=== PATIENT | female | born 1945 | race Caucasian/White ===

== ENCOUNTER → 2018-03-12 | Outpatient (CLI) | payer MEDICARE, OTHER ==
[~2018-03-12] MED LIST: Aspir 8181 MG PO; Glucose4 GM PO; INSULANPEN SC; Indapamide2.5 MG; Iron Supplemen325 MG PO; LOSA25 PO; METF500 PO; Multiple Vitam1 EAC1 PO; TRAZ50 PO; VENL75ER PO
== END | disposition home or self-care (01) ==
LOC: LAB SHORT 10:13 → PLD 10:13
DX: D48.5 Neoplasm of uncertain behavior of skin (principal)
CPT/HCPCS: 88305

== ENCOUNTER → 2018-12-13 | Outpatient (CLI) | payer MEDICARE, OTHER ==
[2018-12-15 14:31] LABS: Campylobacter Sp Not Detected (NOT DETECT); Cryptosporidium Not Detected (NOT DETECT); E. Coli O157 Not Detected (NOT DETECT); Enteroaggregative E. coli-EAEC Not Detected (NOT DETECT); Enteropathogenic E. coli-EPEC Not Detected (NOT DETECT); Enterotoxigenic E. coli-ETEC Not Detected (NOT DETECT); Plesiomonas Shigelloides Not Detected (NOT DETECT); Salmonella Sp Not Detected (NOT DETECT); Shiga Toxin-prod E. coli-STEC Not Detected (NOT DETECT); Shigella/Enteroin E. coli-EIEC Not Detected (NOT DETECT); Vibrio Cholerae Not Detected (NOT DETECT); Vibrio Sp Not Detected (NOT DETECT); Yersinia Enterocolitica Not Detected (NOT DETECT)
[2018-12-15 14:32] LABS: Adenovirus F 40/41 Not Detected (NOT DETECT); Astrovirus Not Detected (NOT DETECT); Cyclospora Cayetanensis Not Detected (NOT DETECT); Entamoeba Histolytica Not Detected (NOT DETECT); Giardia Lamblia Not Detected (NOT DETECT); Norovirus GI/GII Not Detected (NOT DETECT); Rotavirus A Not Detected (NOT DETECT); Sapovirus Not Detected (NOT DETECT)
== END | disposition home or self-care (01) ==
LOC: LAB SHORT 11:42 → LAB 11:42 → LAB FUT 12-11 08:50
PROVIDERS: Internal Medicine
DX: R19.7 Diarrhea, unspecified (principal)
CPT/HCPCS: 87507

== ENCOUNTER 2019-03-05 16:28 | Inpatient (IN) | payer MEDICARE, OTHER ==
[~2019-03-05] VITALS: Ht 162.6 cm; Wt 77.6 kg
[~2019-03-05 16:28] MED LIST changes: +Ferrous Sulfat325 MG PO; -Iron Supplemen325 MG PO; -TRAZ50 PO; -VENL75ER PO
[2019-03-05 17:03] LABS: BASOPHILS ABSOLUTE AUTO 0.05 K/mm3 (0.00-0.23); BASOPHILS PERCENT AUTO 0 % (0-2); EOSINOPHILS ABSOLUTE AUTO 0.03 K/mm3 (0.00-0.68); EOSINOPHILS PERCENT AUTO 0 % (0-6); Hematocrit 38.2 % (33.0-51.0); Hemoglobin 12.4 g/dL (11.5-16.0); IMMATURE GRAN PERCENT AUTO 1 % (0-1); LYMPHOCYTES ABSOLUTE AUTO 1.42 K/mm3 (0.84-5.20); LYMPHOCYTES PERCENT AUTO 7 % (21-46); MONOCYTES ABSOLUTE AUTO 1.36 K/mm3 (0.16-1.47); MONOCYTES PERCENT AUTO 6 % (4-13); Mean Corpuscular HGB 28.3 pg (26.0-34.0); Mean Corpuscular HGB Conc 32.5 g/dL (31.5-36.5); Mean Corpuscular Volume 87 fL (80-100); Mean Platelet Volume 9.7 fL (9.1-12.4); NEUTROPHILS ABSOLUTE AUTO 18.88 K/mm3 (1.96-9.15); NEUTROPHILS PERCENT AUTO 86 % (41-73); Platelet Count 415 K/mm3 (150-400); RDW Coefficient Variation 11.9 % (11.7-14.2); RDW Standard Deviation 38.4 fL (35.1-46.3); Red Blood Cell Count 4.38 M/mm3 (3.80-5.20); White Blood Cell Count 21.94 K/mm3 (4.00-11.30)
[2019-03-05 17:29] LABS: Alanine Aminotransfer (ALT/SGP 20 U/L (12-78); Albumin/Globulin Ratio 0.6 (0.8-1.8); Alk Phos 134 U/L (50-136); Anion Gap 9 mmol/L (6-16); Aspartate Aminotrans (AST/SGOT 17 U/L (12-37); Bilirubin, Total 0.6 mg/dL (0.1-1.0); Blood Urea Nitrogen 20 mg/dL (8-24); Bun/Creatinine Ratio 19.4 (12.0-20.0); CO2, Blood 27 mmol/L (21-32); Calcium, Blood 8.7 mg/dL (8.5-10.1); Chloride, Blood 94 mmol/L (98-108); Creatinine, Blood 1.03 mg/dL (0.40-1.00); Globulin, Blood 4.7 g/dL (2.2-4.0); Glomerular Filtration Rate 56 (60-); Glucose, Blood 257 mg/dL (70-99); Potassium, Blood 3.1 mmol/L (3.5-5.5); Sodium, Blood 130 mmol/L (136-145); Total Protein, Blood 7.7 g/dL (6.4-8.2); Troponin I <0.015 ng/mL (0.000-0.040)
[2019-03-05] MEDS ORDERED: ATOR40TA PO (19:30)
[2019-03-05] MEDS ORDERED: LIRA0.6P SC (19:33)
[2019-03-05] MEDS ORDERED: VENL75ER PO (20:09)
[2019-03-05] MEDS ORDERED: TRAZ50 PO (20:10)
[2019-03-05] MEDS ORDERED: METO25 PO (20:11)
[2019-03-05] MEDS ORDERED: C-1000 WITH R1000 MG PO (20:12)
--- NOTE | 2019-03-06 04:43 | NUR ---
SHIFT SUMMARY: PT IS ALERT AND ORIENTED. PT IS CALM AND COOPERATIVE WITH CARE. PT IS A STANDBY ASSIST. FAMILY PRESENT UPON ADMISSION. FLUIDS RUNNING ORDERED. PT DENIES PAIN, NAUSEA, AND VOMITING. PT REPORTS SOB UPON EXERTION, O2 SATS > 90% ON ROOM AIR. NO ACUTE CHANGES OR COMPLICATIONS THIS SHIFT. BED IN LOW POSITION, CALL LIGHT WITHIN REACH.
[2019-03-06 05:36] LABS: Anion Gap 12 mmol/L (6-16); Blood Urea Nitrogen 15 mg/dL (8-24); CO2, Blood 21 mmol/L (21-32); Calcium, Blood 7.8 mg/dL (8.5-10.1); Chloride, Blood 101 mmol/L (98-108); Creatinine, Blood 0.88 mg/dL (0.40-1.00); Glomerular Filtration Rate >60 (60-); Glucose, Blood 230 mg/dL (70-99); Potassium, Blood 3.7 mmol/L (3.5-5.5); Sodium, Blood 134 mmol/L (136-145)
--- NOTE | 2019-03-06 18:05 | NUR ---
SHIFT SUMMARY PATIENT HAS BEEN PLEASANT MOVING AROUND INDEPENDENTLY. SHE HAS BEEN WALKING IN THE HALLS AND KNOWS THAT SHE HAS TO BE UP AND WALKING WELL EATING IN ORDER TO GO HOME. SHE IS A POTENTIAL DISCHARGE TOMORROW LONG SHE IS CONTINUING TO IMPROVE. PATIENT IS CONCERNED THAT SHE IS GETTING CONFUSED.
--- NOTE | 2019-03-07 07:17 | NUR ---
a+o, room air, saline locked, call light in reach, up walking in june with family and on own, walking rounds completed with returning day shift
--- NOTE | 2019-03-07 19:21 | NUR ---
SHIFT SUMMARY PATIENT MILDLY ANXIOUS THIS MORNING. SHE HAS GOTTEN BETTER THROUGHOUT THE DAY. POTENTIAL DISCHARGE TOMORROW PER DR. LAMAR SHE IS EATING AND DRINKING BETTER THAN SHE HAS IN THE LAST TWO DAYS. STATES THAT SHE IS FEELING BETTER. WANTS TO CONTINUE TO GET UP AND WALK. PATIENT'S AC IV WAS REMOVED IT HAD INFILTRATED.
--- NOTE | 2019-03-08 07:03 | NUR ---
a+o, takes medication and direction well, asks good questions, cooperative, looking forward to going home today, saline locked room air call light in reach, walking rounds completed with day shift
[2019-03-08] MEDS ORDERED: LEVFLO500 PO (12:21)
--- NOTE | 2019-03-08 14:47 | NUR ---
DISCHARGE SUMMARY PATIENT PLEASANT. NO ACUTE CONCERNS. PATIENT INSTRUCTIONS TALKED THROUGH WITH THE PATIENT PRIOR TO DISCHARGE. ASSESSED FOR ANY CHANGES. IV REMOVED PRIOR TO DISCHARGE. PATIENT WHEELED OUT.
== END 2019-03-08 14:00 | disposition home or self-care (01) | DRG 871 ==
LOC: ER 16:28 → MEDS 19:57 → ENPENDDIS 03-08 11:05 → MEDS 03-08 14:00
PROVIDERS: Emergency Medicine; ADMIT Internal Medicine
DX: A41.9 Sepsis, unspecified organism (principal); J18.1 Lobar pneumonia, unspecified organism; E87.1 Hypo-osmolality and hyponatremia; I50.32 Chronic diastolic (congestive) heart failure; E87.6 Hypokalemia; E11.9 Type 2 diabetes mellitus without complications; I11.0 Hypertensive heart disease with heart failure; Z66 Do not resuscitate
CPT/HCPCS: 36415; 71046; 80048; 80053; 82947; 83605; 84484; 85025; 87040; 93005; 93010; 96365; 96366; 96367; 97110; 97116; 97161; 99284-25; J0456; J0696; J1650; J3480; J7030; J7050

== ENCOUNTER 2020-10-31 01:01 | Observation (INO) | payer MEDICARE, OTHER ==
[~2020-10-31] VITALS: Ht 165.1 cm; Wt 77.0 kg
[~2020-10-31 01:01] MED LIST changes: +ATOR80 PO; +C COMPLEX1000 M1 PO; +LEVFLO500 PO; +METO25 PO; +TRAZ50 PO; +VENL75ER PO; +VICTOZA 2-0.6 MG/0.1 SC
[2020-10-31 01:36] LABS: BASOPHILS ABSOLUTE AUTO 0.05 K/mm3 (0.00-0.23); BASOPHILS PERCENT AUTO 0 % (0-2); EOSINOPHILS ABSOLUTE AUTO 0.02 K/mm3 (0.00-0.68); EOSINOPHILS PERCENT AUTO 0 % (0-6); Hematocrit 36.7 % (33.0-51.0); Hemoglobin 11.7 g/dL (11.5-16.0); IMMATURE GRAN ABSOLUTE AUTO 0.06 K/mm3 (0.00-0.10); IMMATURE GRAN PERCENT AUTO 0 % (0-1); LYMPHOCYTES ABSOLUTE AUTO 0.98 K/mm3 (0.84-5.20); LYMPHOCYTES PERCENT AUTO 6 % (21-46); MONOCYTES ABSOLUTE AUTO 0.59 K/mm3 (0.16-1.47); MONOCYTES PERCENT AUTO 4 % (4-13); Mean Corpuscular HGB 28.5 pg (26.0-34.0); Mean Corpuscular HGB Conc 31.9 g/dL (31.5-36.5); Mean Corpuscular Volume 89 fL (80-100); Mean Platelet Volume 10.4 fL (9.1-12.4); NEUTROPHILS ABSOLUTE AUTO 14.53 K/mm3 (1.96-9.15); NEUTROPHILS PERCENT AUTO 90 % (41-73); Platelet Count 229 K/mm3 (150-400); RDW Coefficient Variation 12.3 % (11.7-14.2); RDW Standard Deviation 40.4 fL (35.1-46.3); Red Blood Cell Count 4.11 M/mm3 (3.80-5.20); White Blood Cell Count 16.23 K/mm3 (4.00-11.30)
[2020-10-31 01:57] LABS: Alanine Aminotransfer (ALT/SGP 49 U/L (12-78); Albumin, Blood 3.3 g/dL (3.4-5.0); Alk Phos 105 U/L (50-136); Anion Gap 5 mmol/L (6-16); Aspartate Aminotrans (AST/SGOT 35 U/L (12-37); Bilirubin, Total 0.6 mg/dL (0.1-1.0); Blood Urea Nitrogen 27 mg/dL (8-24); CO2, Blood 26 mmol/L (21-32); Calcium, Blood 8.7 mg/dL (8.5-10.1); Chloride, Blood 105 mmol/L (98-108); Creatinine, Blood 1.04 mg/dL (0.40-1.00); Ethanol (Alcohol), Blood, Med <3 mg/dL; Globulin, Blood 3.3 g/dL (2.2-4.0); Glomerular Filtration Rate 55 (60-); Glucose, Blood 315 mg/dL (70-99); Sodium, Blood 136 mmol/L (136-145); Total Protein, Blood 6.6 g/dL (6.4-8.2)
[2020-10-31 01:58] LABS: International Normalized Ratio 0.96; Prothrombin Time Results 10.3 Sec (9.7-11.5)
[2020-10-31 02:23] LABS: Source, Urine Voided
[2020-10-31 02:25] LABS: Bilirubin, Urine Neg (Neg); Blood, Urine 2+ (Neg); Glucose Qualitative, Urine 4+ (Neg); Ketones, Urine 2+ (Neg); Leukocyte Esterase, Urine Neg (Neg); Nitrite, Urine Neg (Neg); Protein, Urine 2+ (Neg); Specific Gravity, Urine 1.015 (1.003-1.022); Urobilinogen, Urine NORM (Normal)
[2020-10-31 02:31] LABS: Appearance, Urine Clear (Clear); Bacteria Many /hpf; Color, Urine Yellow (P-Yellow); Red Blood Cells, Urine 0-2 /hpf (0-2)
[2020-10-31 02:32] LABS: Squamous Epithelial Cells Few /hpf (Few)
--- NOTE | 2020-10-31 06:05 | NUR ---
PATIENT IS A NEW ADMIT FROM THE ED. AXOX 2 TO SELF AND SPOUSE. NO YEAR, PRESIDENT, OR FACILITY. OKAY WITH MONTH. FOUR PERSON TRANSFER FROM RDETROIT TO BED. NOT ABLE TO FOLLOW DIRECTIONS AT THIS TIME. SPOUSE PRESENT THROUGH ADMIT AND LEFT AT THIS TIME. NS STARTED AT 100 mL/HR. TELEMETRY PLACED AND TECH REPORTS NSR 91. KIKE PRESENT ON ADMIT FROM THE ED. NO MEDICATION HX AT THIS TIME PER ED RN. DENIES PAIN, SOB, AND N/V. ON ROOM AIR. REPEATS QUESTIONS LIKE WHAT TIME IS IT X SIX AFTER ANSWER GIVEN EACH TIME. FEBRILE 100.9 ON ADMIT. ORIENTED TO ROOM AND CALL LIGHT SYSTEM. BED ALARM ACTIVATED FOR IMPULSIVENESS.
--- NOTE | 2020-10-31 06:33 | NUR ---
TOX SCREEN COLLECTED AND SENT TO LAB
[2020-10-31 06:55] LABS: U Amphetamine Screen Not Detected; U Barbituate Screen Not Detected; U Benzodiazapine Screen Not Detected; U Buprenorphine Screen Not Detected; U Cannabinoids Screen Not Detected; U Cocaine Screen Not Detected; U Methadone Screen Not Detected; U Methamphetamine Screen Not Detected; U Opiates Screen Not Detected; U Oxycodone Screen Not Detected; U Phencyclidine Screen Not Detected; U Propoxyphene Screen Not Detected
--- NOTE | 2020-10-31 07:09 | NUR ---
PULLED PIV. DAY RN NOTIFIED.
--- NOTE | 2020-10-31 15:17 | NUR ---
UNABLE TO OBTAIN MED LIST HER PCP OFFICE IS CLOSED TODAY AND SHE DOES NOT HAVE A NUMBER FOR HER MAIL IN PHARMACY. HER KHUSHI SAID HE WILL CHECK WHEN HE GETS HOME. DR MIDDLETON NOTIFIED. WILL ATTEMPT TO OBTAIN MED LIST TOMORROW AM
[2020-10-31 16:57] LABS: Influenza A, PCR Negative (NEGATIVE); Influenza B, PCR Negative (NEGATIVE); Resp Syncytial Virus, PCR Negative (NEGATIVE); SARS-Cov-2 (COVID-19) PCR, MMC Negative (NEGATIVE)
--- NOTE | 2020-10-31 18:50 | NUR ---
SHIFT SUMMARY PATIENT WAS VERY CONFUSED THIS AM. SHE WAS ONLY ABLE TO TELL ME HER NAME. SHE IS NOW A&O X4. SHE HAS SOME DIFFICULTY EXPRESSING HERSELF AT TIMES AND SAYING WHAT SHE MEANS. ALSO VERY WEAK, 2PA. BED ALARM ON FOR SAFETY. STOKES PATENT AND DRAINING. CAROTID DUPLEX DONE TODAY. PATIENT TO HAVE MRI. COVID TEST DONE WELL AND WAS NEGATIVE. BLOOD SUGARS ELEVATED THIS AM AND AFTERNOON AND BACK DOWN TO PATIENT BASELINE (PER PATIENT AND SPOUSE) THIS EVENING.
[2020-10-31] MEDS ORDERED: LATA.005SO BOTHEYES (20:45)
[2020-10-31] MEDS ORDERED: MECL12.5 PO (20:47)
[2020-11-01 05:26] LABS: BASOPHILS ABSOLUTE AUTO 0.05 K/mm3 (0.00-0.23); BASOPHILS PERCENT AUTO 1 % (0-2); EOSINOPHILS ABSOLUTE AUTO 0.28 K/mm3 (0.00-0.68); EOSINOPHILS PERCENT AUTO 3 % (0-6); Hematocrit 31.9 % (33.0-51.0); Hemoglobin 10.1 g/dL (11.5-16.0); IMMATURE GRAN ABSOLUTE AUTO 0.03 K/mm3 (0.00-0.10); IMMATURE GRAN PERCENT AUTO 0 % (0-1); LYMPHOCYTES ABSOLUTE AUTO 3.53 K/mm3 (0.84-5.20); LYMPHOCYTES PERCENT AUTO 33 % (21-46); MONOCYTES ABSOLUTE AUTO 0.87 K/mm3 (0.16-1.47); MONOCYTES PERCENT AUTO 8 % (4-13); Mean Corpuscular HGB 28.3 pg (26.0-34.0); Mean Corpuscular HGB Conc 31.7 g/dL (31.5-36.5); Mean Corpuscular Volume 89 fL (80-100); Mean Platelet Volume 10.5 fL (9.1-12.4); NEUTROPHILS PERCENT AUTO 56 % (41-73); Platelet Count 218 K/mm3 (150-400); RDW Coefficient Variation 12.4 % (11.7-14.2); RDW Standard Deviation 40.9 fL (35.1-46.3); Red Blood Cell Count 3.57 M/mm3 (3.80-5.20); White Blood Cell Count 10.76 K/mm3 (4.00-11.30)
--- NOTE | 2020-11-01 05:52 | NUR ---
COLORIST PHOTOGRAPHY SUMMARY PT AAOX4 TONIGHT. KNEW HER NAME, , WHERE SHE WAS, AND WHAT YEAR IT IS. PT DOES HAVE SOME INTERMITTENT CONFUSION/FORGETFULNESS AT TIMES BUT HAS BEEN MOSTLY APPROPRIATE THROUGH THE NIGHT. DENIES PAIN, SOB, N/V. PT TO HAVE MRI OF HER HEAD LATER THIS AM. SCREENING FORM FAXED TO IMAGING. VSS, WILL CONTINUE TO MONITOR.
[2020-11-01 06:12] LABS: Albumin, Blood 2.7 g/dL (3.4-5.0); Bilirubin, Total 0.6 mg/dL (0.1-1.0); Bun/Creatinine Ratio 23.5 (12.0-20.0); Calcium, Blood 8.2 mg/dL (8.5-10.1); Creatinine, Blood 1.15 mg/dL (0.40-1.00); Globulin, Blood 2.8 g/dL (2.2-4.0); Potassium, Blood 3.7 mmol/L (3.5-5.5); Thyroid Stimulating Hormone 1.74 uIU/mL (0.360-4.800); Total Protein, Blood 5.5 g/dL (6.4-8.2)
[2020-11-01] MEDS ORDERED: LEVFLO500 PO (15:04)
--- NOTE | 2020-11-01 17:09 | NUR ---
DISCHARGE NOTE PT WAS ALERT WITH BOUT OF CONFUSIONS. PT KNEW NAME AND BIRTHDAY BUT DURING ONE CONVERSATION PT BELIEVED SHE IS WAS IN A STORAGE CLOSET. 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 PT BECAME MIDLY ANXIOUIS TRYING TO USE PHONE IN THE MORNING ANG TRYING TO REMEMBERS FAMILYS PHONE NUMBERS. HELPED HER DIAL HUSBANDS NUMBER. PT STOKES, IV AND TELLUmang WERE ALL DC AND REMOVED FROM PT. PT SON CAME DURING VISITING HOURS AND BROUGHT CLOTHES FOR PT TO CHANGE INTO. PT WORKED WITH PT/OT. WENT OVER DC INSTRUCTION WITH PT. PT TAKEN VIA WC TO EXIT BY NURSES SUPERINTENDENT.
== END 2020-11-01 16:20 | disposition home health service (06) ==
LOC: ER 01:01 → MEDS 01:02 → ER 03:25 → MEDS 03:25
PROVIDERS: Emergency Medicine; Internal Medicine; ADMIT Family Medicine
DX: A41.9 Sepsis, unspecified organism (principal); J18.9 Pneumonia, unspecified organism; E87.6 Hypokalemia; E87.1 Hypo-osmolality and hyponatremia; E11.649 Type 2 diabetes mellitus with hypoglycemia without coma; F03.90 Unspecified dementia, unspecified severity, without behavioral disturbance, psychotic disturbance, mood disturbance, and anxiety; I13.0 Hypertensive heart and chronic kidney disease with heart failure and stage 1 through stage 4 chronic kidney disease, or unspecified chronic kidney disease; E11.22 Type 2 diabetes mellitus with diabetic chronic kidney disease; N18.30 Chronic kidney disease, stage 3 unspecified; I50.32 Chronic diastolic (congestive) heart failure; E78.5 Hyperlipidemia, unspecified; Z20.828 Contact with and (suspected) exposure to other viral communicable diseases; Z23 Encounter for immunization; Z88.8 Allergy status to other drugs, medicaments and biological substances; Z91.013 Allergy to seafood; Z79.82 Long term (current) use of aspirin; Z79.84 Long term (current) use of oral hypoglycemic drugs; Z79.899 Other long term (current) drug therapy
CPT/HCPCS: 0241U; 36415; 51702; 70450; 70551; 71045; 80053; 81001; 82607; 82746; 82947; 83036; 83605; 84145; 84443; 85025; 85610; 85730; 87077; 87086; 87186; 93005; 93010; 93880; 97110; 97116; 97162; 97166; 97530; 97535; A9270-GY; G0480; J0696; J1650; J1815; J7030

== ENCOUNTER → 2020-11-09 | Outpatient (CLI) | payer MEDICARE, OTHER ==
[~2020-11-09] MED LIST changes: +LATA.005SO BOTHEYES; +MECL12.5 PO
[2020-11-09 13:42] LABS: Source, Urine Clean Catch
[2020-11-09 15:13] LABS: Bilirubin, Urine Neg (Neg); Blood, Urine 1+ (Neg); Glucose Qualitative, Urine Neg (Neg); Ketones, Urine Neg (Neg); Leukocyte Esterase, Urine Neg (Neg); Nitrite, Urine Neg (Neg); Protein, Urine Neg (Neg); Urobilinogen, Urine NORM (Normal)
[2020-11-09 15:21] LABS: Appearance, Urine Clear (Clear); Color, Urine Yellow (P-Yellow); White Blood Cells, Urine 0-2 /hpf (0-5)
[2020-11-09 15:22] LABS: Bacteria Few /hpf; Squamous Epithelial Cells Few /hpf (Few)
== END | disposition home or self-care (01) ==
LOC: LAB SHORT 12:53
PROVIDERS: Internal Medicine
DX: N30.00 Acute cystitis without hematuria (principal)
CPT/HCPCS: 81001

== ENCOUNTER 2021-02-01 14:28 | Emergency (ER) | payer MEDICARE, OTHER ==
[~2021-02-01] VITALS: Ht 162.6 cm; Wt 68.5 kg
== END 2021-02-01 15:50 | disposition home or self-care (01) ==
LOC: ER 14:28
DX: S00.81XA Abrasion of other part of head, initial encounter (principal); Z79.52 Long term (current) use of systemic steroids; Z90.13 Acquired absence of bilateral breasts and nipples; Z79.899 Other long term (current) drug therapy; W01.0XXA Fall on same level from slipping, tripping and stumbling without subsequent striking against object, initial encounter
CPT/HCPCS: 70450; 99283-25

== ENCOUNTER → 2021-02-14 | Outpatient (CLI) | payer MEDICARE, OTHER ==
[2021-02-15 10:36] LABS: Stool Occult Bld Immuno 1 Negative (NEGATIVE); Stool Occult Bld Immuno 2 Negative (NEGATIVE); Stool Occult Bld Immuno 3 Negative (NEGATIVE)
== END ==
LOC: LAB SHORT 10:00 → LAB FUT 01-23 10:35 → LAB SHORT 01-23 10:35
PROVIDERS: Internal Medicine Gastroenterology
DX: Z12.11 Encounter for screening for malignant neoplasm of colon (principal)
CPT/HCPCS: G0328

== ENCOUNTER → 2021-02-16 | Outpatient (CLI) | payer MEDICARE, OTHER | END | disposition home or self-care (01) | LOC: LAB SHORT 15:22 | DX: N89.8 Other specified noninflammatory disorders of vagina (principal) | CPT/HCPCS: 87070; 87205 ==

== ENCOUNTER → 2021-04-25 | Outpatient (CLI) | payer MEDICARE, OTHER | LOC: LAB SHORT 15:44 → LAB 15:44 | DX: D48.5 Neoplasm of uncertain behavior of skin (principal) | CPT/HCPCS: 88305 ==

== ENCOUNTER 2021-04-27 11:47 | Day surgery (SDC) | payer MEDICARE, OTHER | END 2021-04-27 14:51 | disposition home or self-care (01) | LOC: ORSCSDS 11:47 | PROVIDERS: Obstetrics & Gynecology | PROC: 0UDB8ZX Extraction of Endometrium, Via Natural or Artificial Opening Endoscopic, Diagnostic (ICD-10-PCS; principal; 2021-04-27 13:15) | DX: N95.0 Postmenopausal bleeding (principal); C54.1 Malignant neoplasm of endometrium; N94.89 Other specified conditions associated with female genital organs and menstrual cycle; I10 Essential (primary) hypertension; E11.9 Type 2 diabetes mellitus without complications; G20 Parkinson's disease; Z79.84 Long term (current) use of oral hypoglycemic drugs; Z79.899 Other long term (current) drug therapy; Z79.82 Long term (current) use of aspirin; R93.89 Abnormal findings on diagnostic imaging of other specified body structures | CPT/HCPCS: 82947; 88305; A9270; J1100; J1885; J2250; J2405; J2704; J3010 ==

== ENCOUNTER 2022-03-01 07:02 | Day surgery (SDC) | payer MEDICARE, OTHER ==
[~2022-03-01] VITALS: Ht 162.6 cm; Wt 64.4 kg
[2022-03-01] MEDS ORDERED: CARBLEV25 SL (07:41)
--- NOTE | 2022-03-01 13:15 | NUR ---
03/01/22 1315 Carolyn Robles LATE ENTRY: TETRAMOS- [id number] SEE- [id number]
== END 2022-03-01 09:10 | disposition home or self-care (01) ==
LOC: ORSCSDS 07:02
PROVIDERS: Ophthalmology
PROC: 08RJ3JZ Replacement of Right Lens with Synthetic Substitute, Percutaneous Approach (ICD-10-PCS; principal; 2022-03-01 08:30)
DX: H25.13 Age-related nuclear cataract, bilateral (principal); I10 Essential (primary) hypertension; E78.5 Hyperlipidemia, unspecified; E11.9 Type 2 diabetes mellitus without complications; I47.1 Supraventricular tachycardia; Z79.84 Long term (current) use of oral hypoglycemic drugs; Z79.82 Long term (current) use of aspirin; Z79.899 Other long term (current) drug therapy
CPT/HCPCS: 82947; J2001; J2250; J3010; J3301; J7040; V2632

== ENCOUNTER 2022-03-28 10:54 | Emergency (ER) | payer MEDICARE, OTHER ==
[~2022-03-28] VITALS: Ht 162.6 cm; Wt 65.3 kg
[~2022-03-28 10:54] MED LIST changes: +CARBLEV25 SL
== END 2022-03-28 13:31 | disposition home or self-care (01) ==
LOC: ER 10:54
DX: S00.83XA Contusion of other part of head, initial encounter (principal); W19.XXXA Unspecified fall, initial encounter; G20 Parkinson's disease; Z88.8 Allergy status to other drugs, medicaments and biological substances; Z91.013 Allergy to seafood; Z79.899 Other long term (current) drug therapy
CPT/HCPCS: 70450; 99283-25

== ENCOUNTER 2022-04-03 06:12 | Day surgery (SDC) | payer MEDICARE, OTHER ==
[~2022-04-03] VITALS: Ht 162.6 cm; Wt 67.5 kg
--- NOTE | 2022-04-03 06:41 | NUR ---
04/03/22 0641 Dre Lopez CALL LIGHT WITHIN REACH. TETRACAINE DROPS IN LEFT EYE AT 0632 AND PLEDGETT AT 0636. PT CAME IN WITH FACIAL BRUISING ON THE RIGHT SIDE. PT STATED SHE FELL ABOUT A WEEK AGO.
== END 2022-04-03 08:02 | disposition home or self-care (01) ==
LOC: ORSCSDS 06:12
PROVIDERS: Ophthalmology
PROC: 08RK3JZ Replacement of Left Lens with Synthetic Substitute, Percutaneous Approach (ICD-10-PCS; principal; 2022-04-03 07:30)
DX: H25.12 Age-related nuclear cataract, left eye (principal); E11.9 Type 2 diabetes mellitus without complications; E78.5 Hyperlipidemia, unspecified; I10 Essential (primary) hypertension; G20 Parkinson's disease; Z79.899 Other long term (current) drug therapy; Z79.82 Long term (current) use of aspirin; Z79.84 Long term (current) use of oral hypoglycemic drugs
CPT/HCPCS: 82947; J2001; J2250; J3010; J3301; J7040; V2632